=== PATIENT | male | born 1975 | race Caucasian/White ===

== ENCOUNTER 2018-05-18 07:44 | Emergency (ER) | payer OTHER ==
[~2018-05-18] VITALS: Ht 167.6 cm; Wt 74.6 kg
[2018-05-18 07:46] VITALS: BP 135/85; PULSE 77; RESP 19; Ht 167.6 cm; Wt 74.6 kg
[2018-05-18] MEDS ORDERED: BENZ-6 PO (07:58)
[2018-05-18] MEDS ORDERED: LEVO750T25 PO (07:58)
[2018-05-18] MEDS ORDERED: PROM6.2515 PO (07:58)
--- NOTE | 2018-05-18 08:34 | ERD ---
ER Documentation Chief Complaint Chief Complaint cough with reddish colored sputum and flu symptoms x 2 days HPI 43-year-old male presenting with cough times 2 days. Patient was diagnosed 4 days ago with the flu however his fever has resolved. Patient states that he has a productive cough with no continued fever. He has not taken medications for symptoms. He denies pleuritic chest pain or shortness of breath. He states the cough began yesterday and has continued. He denies any leg swelling. Denies cardiac chest pain. Denies medical problems. NKDA. Surgical history denies. Social history denies ROS All systems reviewed and are negative except as per history of present illness. Medications Home Meds Active Scripts Promethazine Hcl* (Promethazine Hcl* Syrup) 6.25 Mg/5 Ml Syrup, 6.25 MG PO Q6H PRN for COUGH, #100 ML Prov:TYE HE PA-C 05/18/18 Benzonatate* (Tessalon Perle*) 100 Mg Capsule, 100 MG PO Q8H PRN for COUGH, #30 CAP Prov:TYE HE PA-C 05/18/18 Levofloxacin* (Levaquin*) 750 Mg Tablet, 750 MG PO DAILY for 5 Days, TAB Prov:TYE HE PA-C 05/18/18 Allergies Allergies: Coded Allergies: No Known Allergy (Unverified , 05/18/18) PMhx/Soc Medical and Surgical Hx: pt denies Surgical Hx Hx Miscellaneous Medical Probl: Yes (H1N1,+Influenza) Hx Alcohol Use: Yes (occasional) Hx Substance Use: No Hx Tobacco Use: No Smoking Status: Never smoker FmHx Family History: No diabetes, No coronary disease, No other Physical Exam Vitals Vital Signs Date Temp Pulse Resp B/P (MAP) Pulse Ox O2 O2 Flow FiO2 Time Delivery Rate 05/18/18 98.5 77 19 135/85 98 07:46 (102) Physical Exam GENERAL: The patient is well-appearing, well-nourished, in no acute distress HEENT: Atraumatic. Conjunctivae are pink. Pupils equal, round, and reactive to light. There is no scleral icterus. Tympanic membranes clear bilaterally. Oropharynx clear. NECK: C-spine is soft and supple. There is no meningismus. There is no cervical lymphadenopathy. CHEST: Coarse breath sounds heard in the left lung field with no retractions. No wheezing. Clear breath sounds heard in the right lung space. HEART: Regular rate and rhythm. No murmurs, clicks, rubs or gallops. Procedures/MDM MDM: 43-year-old male presenting with productive cough. Patient has had recent positive influenza test at outside facility. Patient did have coarse breath sounds heard in the left lower lung field so we will treat for a possible early pneumonia. I do not feel a chest x-ray was indicated as I plan to treat regardless. I have low suspicion for respiratory distress or hypoxia patient's oxygen levels are stable at 98% on room air. There is no wheezing heard on auscultation so I do not feel breathing treatment was necessary. I have low suspicion for cardiac emergency as patient's exam is within normal limits and patient is not complaining of deep chest pain. There is no radiating chest pain. Patient is discharged with supportive medications and told to follow-up with primary care within 1-2 days for close evaluation. Patient is told symptoms change or worsen to immediately return to ER. All questions answered at discharge Departure Diagnosis: Primary Impression: Cough Condition: Stable Patient Instructions: Cough, Chronic, Uncertain Cause, (Adult) Referrals: COMM[facility]ITY CLIN[facility] YOU HAVE RECEIVED A MEDICAL SCREENING EXAM AND THE RESULTS INDICATE THAT YOU DO NOT HAVE A CONDITION THAT REQUIRES URGENT TREATMENT IN THE EMERGENCY DEPARTMENT. FURTHER EVALUATION AND TREATMENT OF YOUR CONDITION CAN WAIT UNTIL YOU ARE SEEN IN YOUR DOCTORS OFFICE WITHIN THE NEXT 1-2 DAYS. IT IS YOUR RESPONSIBILITY TO MAKE AN APPOINTMENT FOR FOLOW-UP CARE. IF YOU HAVE A PRIMARY DOCTOR --you should call your primary doctor and schedule an appointment IF YOU DO NOT HAVE A PRIMARY DOCTOR YOU CAN CALL OUR PHYSICIAN REFERRAL HOTLINE AT IF YOU CAN NOT AFFORD TO SEE A PHYSICIAN YOU CAN CHOSE FROM THE FOLLOWING [facility] [address] [facility] [address] [facility] [address] [facility] [address] [facility] [address] [facility] [facility] [address] Additional Instructions: FOLLOW UP WITH YOUR PRIMARY CARE PHYSICIAN TOMORROW.Return to this facility if you are not improving as expected. TYE HE PA-C May 18, 2018 08:33
== END 2018-05-18 08:07 | disposition home or self-care (01) ==
LOC: FTE 07:44
DX: R05 Cough (principal)
CPT/HCPCS: 99283